=== PATIENT | female | born 1935 | race Caucasian/White ===

== ENCOUNTER 2017-05-31 16:25 | Emergency (ER) | payer MEDICARE, OTHER ==
[~2017-05-31] VITALS: Ht 167.6 cm; Wt 65.3 kg
[2017-05-31] MEDS ORDERED: PANT40TA3 PO (17:13)
[2017-05-31] MEDS ORDERED: DOCU-109 PO (17:13)
[2017-05-31] MEDS ORDERED: CYAN10005 PO (17:13)
[2017-05-31] MEDS ORDERED: GABA-586 PO (17:13)
[2017-05-31] MEDS ORDERED: DONE5TAB7 PO (17:13)
[2017-05-31] MEDS ORDERED: SERT50TA PO (17:13)
[2017-05-31] MEDS ORDERED: FOLI1TAB16 PO (17:13)
[2017-05-31] MEDS ORDERED: AMIT10TA PO (17:13)
[2017-05-31] MEDS ORDERED: ATOR20TA58 PO (17:13)
[2017-05-31] MEDS ORDERED: CALC-474 PO (17:13)
[2017-05-31] MEDS ORDERED: UBID100C26 PO (17:13)
[2017-05-31] MEDS ORDERED: GABA-587 PO (17:13)
[2017-05-31] MEDS ORDERED: ACEB200C PO (17:13)
[2017-05-31] MEDS ORDERED: EZET10TA18 PO (17:13)
[2017-05-31] MEDS ORDERED: METH-37 PO (17:13)
[2017-05-31] MEDS ORDERED: GABA-585 PO (17:13)
[2017-05-31] MEDS ORDERED: OMEG-141 PO (17:13)
[2017-05-31] MEDS ORDERED: MULT-47 PO (17:13)
[2017-05-31] MEDS ORDERED: fentaNYL PF VIAL 100 MCG/2 ML VIAL IV PRN (17:15)
[2017-05-31 17:20] LABS: BASO # 0.1 x10^3/uL (0.0-0.2); BASO % 1 % (0-3); EOS % 3 % (0-3); HEMATOCRIT 35.7 % (36.0-47.0); HEMOGLOBIN 12.1 g/dL (12.0-15.5); LYMPH # 1.7 x10^3/uL (1.0-4.8); LYMPH % 16 % (24-48); MEAN CORPUSCULAR HEMOGLOBIN 28 pg (25-35); MEAN CORPUSCULAR HGB CONC 34 g/dL (31-37); MEAN CORPUSCULAR VOLUME 84 fL (79-100); MONO % 8 % (0-9); NEUT % 72 % (31-73); PLATELET COUNT 415 x10^3/uL (140-400); RED BLOOD COUNT 4.26 x10^6/uL (3.50-5.40); RED CELL DISTRIBUTION WIDTH 13.9 % (11.5-14.5); WHITE BLOOD COUNT 10.5 x10^3/uL (4.0-11.0)
[2017-05-31 17:27] LABS: CALCIUM 8.9 mg/dL (8.5-10.1); CREATININE 0.9 mg/dL (0.6-1.0); GFR 60.4; POTASSIUM 3.8 mmol/L (3.5-5.1)
[2017-05-31 17:32] LABS: ALBUMIN 3.1 g/dL (3.4-5.0); ALBUMIN/GLOBULIN RATIO 0.8 (1.0-1.7); TOTAL BILIRUBIN 0.2 mg/dL (0.2-1.0); TOTAL PROTEIN 7.1 g/dL (6.4-8.2)
[2017-05-31 18:15] VITALS: BP 133/60
--- NOTE | 2017-05-31 18:49 | RAD ---
EXAM: Chest, single view. HISTORY: Palpitations. COMPARISON: None. FINDINGS: A frontal view of the chest is obtained. There is no infiltrate, effusion or pneumothorax. The heart is normal in size. There are implanted breast prostheses with peripheral calcification. There is a cardiac pacemaker with leads in expected position. IMPRESSION: No acute pulmonary finding. Electronically signed by: Judith Casillas MD (05/31/2017 6:45 PM) [facility]
--- NOTE | 2017-05-31 19:04 | RAD ---
EXAM: Head and cervical spine CT without contrast. HISTORY: Headache. TECHNIQUE: Computed tomographic images of the head and cervical spine were obtained without contrast. *One or more of the following individualized dose reduction techniques were utilized for this examination: 1. Automated exposure control. 2. Adjustment of the mA and/or kV according to patient size. 3. Use of iterative reconstruction technique. COMPARISON: None. FINDINGS: Head: There is no hemorrhage. There is no mass effect or midline shift. There is no hydrocephalus. There are subtle areas of hypodensity within the cerebral white matter, a nonspecific finding which is likely artifactual or due to chronic small vessel disease. The visualized portions of the orbits, paranasal sinuses and mastoid air cells are unremarkable. No calvarial lesion is seen. Cervical spine: There is cervical kyphosis. There is anterolisthesis of C3 on C4 and slight retrolisthesis of C4 on C5, C5 on C6 and C6 on C7. There is degenerative endplate remodeling with disc space narrowing, osteophytosis and Schmorl's node formation at C4-C7. There is calcified pannus surrounding the dens and there are erosions involving the dens, a nonspecific finding which can be seen with rheumatoid arthritis. No suspicious lytic or splenic osseous lesion is seen. No displaced fracture is seen. There is calcified plaque within the carotid bifurcations. The lung apices are unremarkable. At C2-C3, there is mild right and severe left facet arthropathy. There is no stenosis. At C3-C4, there is mild right and moderate left facet arthropathy. There is no stenosis. At C4-C5, there is a disc bulge and endplate remodeling. There is mild bilateral facet arthropathy. There is no stenosis. At C5-C6, there is a disc bulge and endplate osteophytosis. There is uncovertebral arthropathy. There is no stenosis At C6-C7, there is a disc bulge and endplate osteophytosis. There is uncovertebral arthropathy. There is no stenosis. IMPRESSION: 1. No acute intracranial finding. 2. 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 3. Cervical kyphosis and multilevel listhesis, degenerative in etiology Electronically signed by: Judith Casillas MD (05/31/2017 7:00 PM) [id number]
[2017-05-31] MEDS ORDERED: OXYC5CAP PO (19:30)
--- NOTE | 2017-05-31 19:30 | PHYS DOC ---
Past Medical History Past Medical History: A-Fib, GERD, High Cholesterol, Hypertension, Other Additional Past Medical Histor: alzheimers Past Surgical History: Hysterectomy, Pacemaker, Tonsillectomy, Other Additional Past Surgical Histo: bunion, implants Alcohol Use: None Drug Use: None Adult General Chief Complaint Chief Complaint: Neck Pain HPI HPI Patient is a 81 year old female who presents with neck pain. She reports 2 day history of bilateral neck pain/stiffness greatest on the right. She also has mild dull right-sided frontal headache, not sudden in onset and not the worst headache of her life. She states symptoms began after she showered for the first time after pacemaker placement (05/[address] Khan). She states she falls often, uncertain whether she might have had a fall since her pacemaker was placed. She doesn't remember any loss of consciousness or specific injury. She states she experienced palpitations briefly before presenting to the emergency department. She denies chest pain, shortness of breath. She denies fevers or chills, erythema/warmth/swelling, or purulent drainage from the incision overlying her pacemaker. Review of Systems Review of Systems Constitutional: Denies fever or chills Eyes: Denies change in visual acuity HENT: Denies nasal congestion or sore throat Respiratory: Denies cough or shortness of breath Cardiovascular: Denies chest pain or edema, reports palpitations GI: Denies abdominal pain, nausea, vomiting Musculoskeletal: Reports neck pain, Denies back pain or joint pain Integument: Denies rash or skin lesions Neurologic: Reports headache, denies focal weakness or sensory changes Current Medications Current Medications Current Medications Medications (Trade) Dose Ordered Sig/[facility] Start Time Stop Time Status Last Admin Dose Admin Fentanyl Citrate (Fentanyl 2ml Vial) 50 mcg PRN Q15MIN PRN 05/31/17 17:15 05/31/17 19:58 DC Oxycodone HCl (Roxicodone) 2.5 mg 1X ONCE 05/31/17 19:45 05/31/17 19:46 DC 05/31/17 19:50 2.5 MG Allergies Allergies Allergies Coded Allergies Type Severity Reaction Last Updated Verified No Known Medication Allergies Allergy Unknown 05/31/17 Yes codeine Adverse Reaction Intermediate Nausea and Vomiting 05/31/17 Yes Physical Exam Physical Exam Constitutional: Well developed, well nourished, no acute distress, non-toxic appearance. HENT: Normocephalic, atraumatic, bilateral external ears normal, oropharynx moist, nose normal. Eyes: PERRLA, EOMI, conjunctiva normal, no discharge. Neck: supple, no stridor. right sternocleidomastoid & trapezius tenderness greatest on the right, no evidence of hematoma, no carotid bruit bilaterally. Cardiovascular: RRR, no murmurs, no edema. Lungs & Thorax: LCTAB, no wheezing, no respiratory distress. left anterior chest wall pacemaker with intact incision, no erythema/warmth/swelling, no drainage. Abdomen: soft, nontender, nondistended. Skin: Warm, dry, no erythema, no rash. Back: No tenderness. Extremities: No tenderness, no edema. Neurologic: Alert and oriented X 3, CN2-12 grossly intact, symmetric strength/ sensation to UE & LE, no focal deficits noted. Psychologic: anxious Current Patient Data Vital Signs Vital Signs Date Time Temp Pulse Resp B/P (MAP) Pulse Ox O2 Delivery O2 Flow Rate FiO2 05/31/17 19:50 20 Room Air 05/31/17 18:15 75 133/60 (84) 96 05/31/17 16:30 98.4 98.4 Lab Values Laboratory Tests Test 05/31/17 16:35 White Blood Count 10.5 x10^3/uL (4.0-11.0) Red Blood Count 4.26 x10^6/uL (3.50-5.40) Hemoglobin 12.1 g/dL (12.0-15.5) Hematocrit 35.7 % (36.0-47.0) L Mean Corpuscular Volume 84 fL (79-100) Mean Corpuscular Hemoglobin 28 pg (25-35) Mean Corpuscular Hemoglobin Concent 34 g/dL (31-37) Red Cell Distribution Width 13.9 % (11.5-14.5) Platelet Count 415 x10^3/uL (140-400) H Neutrophils (%) (Auto) 72 % (31-73) Lymphocytes (%) (Auto) 16 % (24-48) L Monocytes (%) (Auto) 8 % (0-9) Eosinophils (%) (Auto) 3 % (0-3) Basophils (%) (Auto) 1 % (0-3) Neutrophils # (Auto) 7.6 x10^3uL (1.8-7.7) Lymphocytes # (Auto) 1.7 x10^3/uL (1.0-4.8) Monocytes # (Auto) 0.9 x10^3/uL (0.0-1.1) Eosinophils # (Auto) 0.3 x10^3/uL (0.0-0.7) Basophils # (Auto) 0.1 x10^3/uL (0.0-0.2) Sodium Level 141 mmol/L (136-145) Potassium Level 3.8 mmol/L (3.5-5.1) Chloride Level 104 mmol/L (98-107) Carbon Dioxide Level 30 mmol/L (21-32) Anion Gap 7 (6-14) Blood Urea Nitrogen 14 mg/dL (7-20) Creatinine 0.9 mg/dL (0.6-1.0) Estimated GFR (Cockcroft-Gault) 60.4 BUN/Creatinine Ratio 16 (6-20) Glucose Level 142 mg/dL (70-99) H Calcium Level 8.9 mg/dL (8.5-10.1) Total Bilirubin 0.2 mg/dL (0.2-1.0) Aspartate Amino Transferase (AST) 15 U/L (15-37) Alanine Aminotransferase (ALT) 22 U/L (14-59) Alkaline Phosphatase 90 U/L (46-116) Troponin I Quantitative < 0.017 ng/mL (0.000-0.055) Total Protein 7.1 g/dL (6.4-8.2) Albumin 3.1 g/dL (3.4-5.0) L Albumin/Globulin Ratio 0.8 (1.0-1.7) L Laboratory Tests 05/31/17 16:35 Laboratory Tests 05/31/17 16:35 EKG EKG interpreted by me: NSR rate 84, no acute ST/T wave changes, Q waves in lead 3, normal intervals, no ectopy.[] Radiology/Procedures Radiology/Procedures PROCEDURE: CT HEAD AND CERVICAL SPINE WO EXAM: Head and cervical spine CT without contrast. HISTORY: Headache. TECHNIQUE: Computed tomographic images of the head and cervical spine were obtained without contrast. *One or more of the following individualized dose reduction techniques were utilized for this examination: 1. Automated exposure control. 2. Adjustment of the mA and/or kV according to patient size. 3. Use of iterative reconstruction technique. COMPARISON: None. FINDINGS: Head: There is no hemorrhage. There is no mass effect or midline shift. There is no hydrocephalus. There are subtle areas of hypodensity within the cerebral white matter, a nonspecific finding which is likely artifactual or due to chronic small vessel disease. The visualized portions of the orbits, paranasal sinuses and mastoid air cells are unremarkable. No calvarial lesion is seen. Cervical spine: There is cervical kyphosis. There is anterolisthesis of C3 on C4 and slight retrolisthesis of C4 on C5, C5 on C6 and C6 on C7. There is degenerative endplate remodeling with disc space narrowing, osteophytosis and Schmorl's node formation at C4-C7. There is calcified pannus surrounding the dens and there are erosions involving the dens, a nonspecific finding which can be seen with rheumatoid arthritis. No suspicious lytic or splenic osseous lesion is seen. No displaced fracture is seen. There is calcified plaque within the carotid bifurcations. The lung apices are unremarkable. At C2-C3, there is mild right and severe left facet arthropathy. There is no stenosis. At C3-C4, there is mild right and moderate left facet arthropathy. There is no stenosis. At C4-C5, there is a disc bulge and endplate remodeling. There is mild bilateral facet arthropathy. There is no stenosis. At C5-C6, there is a disc bulge and endplate osteophytosis. There is uncovertebral arthropathy. There is no stenosis At C6-C7, there is a disc bulge and endplate osteophytosis. There is uncovertebral arthropathy. There is no stenosis. IMPRESSION: 1. No acute intracranial finding. 2. 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 3. Cervical kyphosis and multilevel listhesis, degenerative in etiology Electronically signed by: Judith Morejon MD (05/31/2017 7:00 PM) [facility] DICTATED and SIGNED BY: JUDITH MOREJON MD DATE: 05/31/17 1647 PROCEDURE: CHEST AP ONLY EXAM: Chest, single view. HISTORY: Palpitations. COMPARISON: None. FINDINGS: A frontal view of the chest is obtained. There is no infiltrate, effusion or pneumothorax. The heart is normal in size. There are implanted breast prostheses with peripheral calcification. There is a cardiac pacemaker with leads in expected position. IMPRESSION: No acute pulmonary finding. Electronically signed by: Judith Morejon MD (05/31/2017 6:45 PM) [facility] DICTATED and SIGNED BY: JUDITH MOREJON MD DATE: 05/31/17 1845[] Course & Med Decision Making Course & Med Decision Making Pertinent Labs and Imaging studies reviewed. (See chart for details) The patient presents with neck pain and recent pacemaker insertion. Provided pain medication. I discussed briefly with Dr. Raygoza who is on-call for Dr. Khan. She agrees with evaluation here, okay to just order CT of head and C- spine which she anticipates will demonstrate hematoma if present. Evaluation was somewhat delayed by IT problems with the PACs system; I was called by radiologist Dr. Villeda with preliminary read showing right frontal subdural fluid collection size of 4 mm. He felt this was likely a chronic finding, however patient denies any history or knowledge of this abnormality on past exams. Location corresponds to the region where she is experiencing headache. I consulted with Dr. Franks of neurosurgery who reviewed the images. He thought likely to be hygroma, recommends follow-up CT in one week as an outpatient, no need to admit to the hospital based on this finding. The final read by a different radiologist actually made no mention of this finding. Otherwise labs, EKG, chest x-ray showed no significant abnormality. Pacemaker was interrogated, no evidence of arrhythmia, had been placed to recently to evaluate battery life. I reviewed results with Dr. Raygoza who recommended okay to discharge home with pain medication, call for appointment with Dr. Khan this week. Discussed at length with the patient and her daughter. Recommend okay to pertussis. And physical therapy as tolerated, give prescription for oxycodone to take as needed for severe pain. Come back for severe headache, severe chest pain, severe shortness of breath, skin infection overlying pacemaker, any otherwise worsening condition. I did communicate on discharge papers need for repeat head CT so that this information can be communicated to half-way physician. Patient discharged home in stable condition. [] Dragon Disclaimer Dragon Disclaimer This electronic medical record was generated, in whole or in part, using a voice recognition dictation system. Departure Departure Impression: Primary Impression: Strain of sternocleidomastoid muscle Disposition: HOME, SELF-CARE Condition: STABLE Referrals: CROW KHAN MD (PCP) Patient Instructions: Soft Tissue Injury of the Neck, [id number] Additional Instructions: You were seen in the emergency department today for neck pain. The tests performed today did not show a serious cause of symptoms. There was an abnormality on your head CT scan that is unlikely to be the cause of your pain. The neurosurgeon recommended a follow-up CT scan in one week. This can be ordered by your primary care doctor or may discussed with Dr. Khan. The pain in your neck is likely muscle strain or spasm. Please continue to use your muscle relaxer. You can take oxycodone for severe breakthrough pain. Use the minimum amount needed to control pain. It is okay to continue physical therapy and occupational therapy as long as you follow restrictions from your pacemaker placement. Follow-up with primary care physician or Dr. Khan in 2 days. You may call the cardiology clinic in the morning to make an appointment. Return to the emergency department for severe confusion, numbness or weakness in arms or legs, worst headache of your life, sudden onset of severe headache, severe chest pain or shortness of breath, persistent palpitations, any otherwise worsening condition. Scripts Oxycodone Hcl (OXYCODONE HCL) 5 Mg Capsule 0.5 CAP PO TID Y for SEVERE PAIN, #6 CAP Prov: YOLANDA LIVE MD 05/31/17 YOLANDA LIVE MD May 31, 2017 19:30
[2017-05-31] MEDS ORDERED: oxyCODONE IR 5 MG TABLET PO ONE (19:45)
--- NOTE | 2017-06-01 06:28 | EKG ---
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
== END 2017-05-31 19:58 | disposition home or self-care (01) ==
LOC: ER 16:25
DX: S16.1XXA Strain of muscle, fascia and tendon at neck level, initial encounter (principal); R00.2 Palpitations; I48.91 Unspecified atrial fibrillation; K21.9 Gastro-esophageal reflux disease without esophagitis; E78.00 Pure hypercholesterolemia, unspecified; I10 Essential (primary) hypertension; G30.9 Alzheimer's disease, unspecified; F02.80 Dementia in other diseases classified elsewhere, unspecified severity, without behavioral disturbance, psychotic disturbance, mood disturbance, and anxiety; Z95.0 Presence of cardiac pacemaker; Z90.710 Acquired absence of both cervix and uterus; Z88.5 Allergy status to narcotic agent; X58.XXXA Exposure to other specified factors, initial encounter; Y93.89 Activity, other specified; Y92.89 Other specified places as the place of occurrence of the external cause; Y99.8 Other external cause status
CPT/HCPCS: 36415; 70450; 71010; 72125; 80053; 84484; 85025; 93005; 99285-25

== ENCOUNTER 2017-08-12 12:55 | Emergency (ER) | payer MEDICARE, OTHER ==
[~2017-08-12] VITALS: Ht 170.2 cm; Wt 65.3 kg
[~2017-08-12 12:55] MED LIST: ACEB200C PO; AMIT10TA PO; ATOR20TA58 PO; CALC-474 PO; CYAN10005 PO; DOCU-109 PO; DONE5TAB7 PO; EZET10TA18 PO; FOLI1TAB16 PO; GABA-585 PO; GABA-586 PO; GABA-587 PO; METH-37 PO; MULT-47 PO; OMEG-141 PO; OXYC5CAP PO; PANT40TA3 PO; SERT50TA PO; UBID100C26 PO
--- NOTE | 2017-08-12 14:14 | RAD ---
CT head without contrast History: Altered mental status. Comparison: 12/29/2016. Procedure: Axial images are obtained of the head from the skull base through the vertex without IV contrast. Findings: Mild bilateral periventricular white matter hypodensities likely chronic small vessel ischemic disease. The ventricles and sulci are normal for the patient's age. No mass-effect, intracranial mass, midline shift, hemorrhage or obvious acute infarction is identified. Basilar cisterns are patent. Bone windows demonstrate no significant calvarial abnormality. The visualized paranasal sinuses appear clear. Impression: 1. No acute intracranial process. PQRS Compliance Statement: One or more of the following individualized dose reduction techniques were utilized for this examination: 1. Automated exposure control 2. Adjustment of the mA and/or kV according to patient size 3. Use of iterative reconstruction technique
--- NOTE | 2017-08-12 14:59 | PHYS DOC ---
Past Medical History Past Medical History: A-Fib, GERD, High Cholesterol, Hypertension, Other Additional Past Medical Histor: alzheimers Past Surgical History: Hysterectomy, Pacemaker, Tonsillectomy, Other Additional Past Surgical Histo: bunion, implants Alcohol Use: Rarely Drug Use: None Adult General Chief Complaint Chief Complaint: HEADACHE HPI HPI Patient is a 81 year old [f__sex] who presents with [] Review of Systems Review of Systems Constitutional: Denies fever or chills [] Eyes: Denies change in visual acuity, redness, or eye pain [] HENT: Denies nasal congestion or sore throat [] Respiratory: Denies cough or shortness of breath [] Cardiovascular: No additional information not addressed in HPI [] GI: Denies abdominal pain, nausea, vomiting, bloody stools or diarrhea [] : Denies dysuria or hematuria [] Musculoskeletal: Denies back pain or joint pain [] Integument: Denies rash or skin lesions [] Neurologic: Denies headache, focal weakness or sensory changes [] Endocrine: Denies polyuria or polydipsia [] Allergies Allergies Allergies Coded Allergies Type Severity Reaction Last Updated Verified codeine Adverse Reaction Intermediate Nausea and Vomiting 05/31/17 Yes Physical Exam Physical Exam Constitutional: Well developed, well nourished, no acute distress, non-toxic appearance. [] HENT: Normocephalic, atraumatic, bilateral external ears normal, oropharynx moist, no oral exudates, nose normal. [] Eyes: PERRLA, EOMI, conjunctiva normal, no discharge. [] Neck: Normal range of motion, no tenderness, supple, no stridor. [] Cardiovascular:Heart rate regular rhythm, no murmur [] Lungs & Thorax: Bilateral breath sounds clear to auscultation [] Abdomen: Bowel sounds normal, soft, no tenderness, no masses, no pulsatile masses. [] Skin: Warm, dry, no erythema, no rash. [] Back: No tenderness, no CVA tenderness. [] Extremities: No tenderness, no cyanosis, no clubbing, ROM intact, no edema. [] Neurologic: Alert and oriented X 3, normal motor function, normal sensory function, no focal deficits noted. [] Psychologic: Affect normal, judgement normal, mood normal. [] Current Patient Data Vital Signs Vital Signs Date Time Temp Pulse Resp B/P (MAP) Pulse Ox O2 Delivery O2 Flow Rate FiO2 08/12/17 14:24 72 16 94 08/12/17 13:01 97.5 148/66 (93) Room Air 97.5 EKG EKG [] Radiology/Procedures Radiology/Procedures [] Course & Med Decision Making Course & Med Decision Making Pertinent Labs and Imaging studies reviewed. (See chart for details) [] Dragon Disclaimer Dragon Disclaimer This electronic medical record was generated, in whole or in part, using a voice recognition dictation system. Departure Departure Disposition: 01 HOME, SELF-CARE Condition: STABLE Referrals: LON CAAL MD (PCP) Patient Instructions: Splenic Injury Additional Instructions: Your history and findings suggest that you are having an attack of your chronic neck pain which appears to have been precipitated by some muscle strain during sleep days ago. Continue your outpatient pain regimen and use your antispasm medication as needed. Consider warm compresses warm soaks and gentle stretches of your neck. The CAT scan of your head showed no acute abnormal findings and no further workup or treatment is indicated at this time. Follow-up with your doctor tomorrow and return immediately for new severe or worsening symptoms. CHANTAL PATRICK MD Aug 12, 2017 14:59
[2017-08-12 15:12] VITALS: BP 144/78
== END 2017-08-12 15:13 | disposition home or self-care (01) ==
LOC: ER 12:55
DX: R51 Headache (principal); I48.91 Unspecified atrial fibrillation; K21.9 Gastro-esophageal reflux disease without esophagitis; E78.00 Pure hypercholesterolemia, unspecified; I10 Essential (primary) hypertension; G30.9 Alzheimer's disease, unspecified; Z95.0 Presence of cardiac pacemaker; Z88.5 Allergy status to narcotic agent
CPT/HCPCS: 70450; 99284-25

== ENCOUNTER → 2017-10-09 | Day surgery (SDC) | payer MEDICARE, OTHER ==
[~2017-10-09] MED LIST changes: -ACEB200C PO; -AMIT10TA PO; -ATOR20TA58 PO; -CALC-474 PO; -CYAN10005 PO; -DOCU-109 PO; -DONE5TAB7 PO; -EZET10TA18 PO; -FOLI1TAB16 PO; -GABA-585 PO; -GABA-586 PO; -GABA-587 PO; +LIDOCAINE 1% PF 2 ML VIAL. ID; +LIDOCAINE 2% PF Vial for OR 5 ML VIAL.; -METH-37 PO; -MULT-47 PO; -OMEG-141 PO; -OXYC5CAP PO; -PANT40TA3 PO; +PROCHLORPERAZINE 10 MG/2 ML VIAL. IV; +PROPOFOL 20 ML IV; -SERT50TA PO; -UBID100C26 PO; +fentaNYL PF VIAL 100 MCG/2 ML VIAL IV
[2017-10-09] MEDS: IV RINGERS,LACTATED 1000ML 1,000 ML IV (13:17)
== END | disposition home or self-care (01) ==
LOC: ENDOS 12:19
DX: K22.2 Esophageal obstruction (principal); K29.50 Unspecified chronic gastritis without bleeding; I10 Essential (primary) hypertension; E78.5 Hyperlipidemia, unspecified; Z95.0 Presence of cardiac pacemaker; Z86.718 Personal history of other venous thrombosis and embolism; Z86.73 Personal history of transient ischemic attack (TIA), and cerebral infarction without residual deficits; K21.9 Gastro-esophageal reflux disease without esophagitis; Z86.19 Personal history of other infectious and parasitic diseases; Z85.828 Personal history of other malignant neoplasm of skin; M19.90 Unspecified osteoarthritis, unspecified site; Z79.01 Long term (current) use of anticoagulants; Z79.899 Other long term (current) drug therapy; Z90.710 Acquired absence of both cervix and uterus; Z88.6 Allergy status to analgesic agent; Z88.8 Allergy status to other drugs, medicaments and biological substances; Z72.89 Other problems related to lifestyle
CPT/HCPCS: 43235; J2704

== ENCOUNTER 2017-11-14 10:24 | Emergency (ER) | payer MEDICARE, OTHER ==
[2017-11-14] MEDS: ONDANSETRON PF 4 MG/2 ML VIAL. IV ×2 (11:00)
[2017-11-14 11:02] LABS: ADD MAN DIFF? NO
[2017-11-14 11:07] LABS: BASO % 1 % (0-3); EOS # 0.2 x10^3/uL (0.0-0.7); EOS % 3 % (0-3); HEMATOCRIT 39.8 % (36.0-47.0); HEMOGLOBIN 13.1 g/dL (12.0-15.5); LYMPH # 1.3 x10^3/uL (1.0-4.8); LYMPH % 24 % (24-48); MEAN CORPUSCULAR HEMOGLOBIN 28 pg (25-35); MEAN CORPUSCULAR HGB CONC 33 g/dL (31-37); MEAN CORPUSCULAR VOLUME 86 fL (79-100); MONO # 0.4 x10^3/uL (0.0-1.1); MONO % 7 % (0-9); NEUT # 3.7 x10^3uL (1.8-7.7); NEUT % 65 % (31-73); PLATELET COUNT 316 x10^3/uL (140-400); RED BLOOD COUNT 4.63 x10^6/uL (3.50-5.40); RED CELL DISTRIBUTION WIDTH 15.1 % (11.5-14.5); WHITE BLOOD COUNT 5.6 x10^3/uL (4.0-11.0)
[2017-11-14 11:24] LABS: ANION GAP 7 (6-14); BLOOD UREA NITROGEN 17 mg/dL (7-20); BUN/CREATININE RATIO 21 (6-20); CALCIUM 8.7 mg/dL (8.5-10.1); CARBON DIOXIDE 28 mmol/L (21-32); CHLORIDE 106 mmol/L (98-107); CREATININE 0.8 mg/dL (0.6-1.0); GFR 69.2; GLUCOSE 95 mg/dL (70-99); POTASSIUM 5.8 mmol/L (3.5-5.1); SODIUM 141 mmol/L (136-145)
[2017-11-14 11:30] LABS: ALBUMIN 3.4 g/dL (3.4-5.0); ALBUMIN/GLOBULIN RATIO 0.9 (1.0-1.7); ALK PHOS 74 U/L (46-116); ALT (SGPT) 31 U/L (14-59); AST (SGOT) 43 U/L (15-37); LIPASE 204 U/L (73-393); TOTAL BILIRUBIN 0.4 mg/dL (0.2-1.0); TOTAL PROTEIN 7.1 g/dL (6.4-8.2)
== END 2017-11-14 13:20 | disposition home or self-care (01) ==
LOC: ER 10:24
DX: T82.118A Breakdown (mechanical) of other cardiac electronic device, initial encounter (principal); F02.80 Dementia in other diseases classified elsewhere, unspecified severity, without behavioral disturbance, psychotic disturbance, mood disturbance, and anxiety; G30.9 Alzheimer's disease, unspecified; E78.00 Pure hypercholesterolemia, unspecified; I10 Essential (primary) hypertension; J45.909 Unspecified asthma, uncomplicated; I48.91 Unspecified atrial fibrillation; K21.9 Gastro-esophageal reflux disease without esophagitis; Z90.710 Acquired absence of both cervix and uterus; Z88.5 Allergy status to narcotic agent; Y82.8 Other medical devices associated with adverse incidents; Y92.89 Other specified places as the place of occurrence of the external cause
CPT/HCPCS: 36415; 71046; 80053; 83690; 85025; 93005; 99285-25

== ENCOUNTER → 2018-01-29 | Outpatient (CLI) | payer MEDICARE, OTHER | END | disposition home or self-care (01) | LOC: MRI 14:00 | DX: M19.011 Primary osteoarthritis, right shoulder (principal); M75.121 Complete rotator cuff tear or rupture of right shoulder, not specified as traumatic; M25.411 Effusion, right shoulder; G89.29 Other chronic pain | CPT/HCPCS: 73221 ==

== ENCOUNTER → 2018-02-04 | Day surgery (SDC) | payer MEDICARE, OTHER ==
[~2018-02-04] MED LIST changes: +ONDANSETRON PF 4 MG/2 ML VIAL. IV; -PROPOFOL 20 ML IV; +PROPOFOL 40 ML IV
[2018-02-04] MEDS: IV RINGERS,LACTATED 1000ML 1,000 ML IV (12:15)
== END | disposition home or self-care (01) ==
LOC: ENDOS 11:43
DX: K64.0 First degree hemorrhoids (principal); K57.30 Diverticulosis of large intestine without perforation or abscess without bleeding; I10 Essential (primary) hypertension; J45.909 Unspecified asthma, uncomplicated; F41.9 Anxiety disorder, unspecified; F32.9 Major depressive disorder, single episode, unspecified; E78.00 Pure hypercholesterolemia, unspecified; K21.9 Gastro-esophageal reflux disease without esophagitis; M19.90 Unspecified osteoarthritis, unspecified site; Z86.73 Personal history of transient ischemic attack (TIA), and cerebral infarction without residual deficits; Z86.19 Personal history of other infectious and parasitic diseases; Z82.49 Family history of ischemic heart disease and other diseases of the circulatory system; Z86.010 Personal history of colon polyps; Z88.5 Allergy status to narcotic agent; Z88.8 Allergy status to other drugs, medicaments and biological substances; Z82.3 Family history of stroke; Z80.0 Family history of malignant neoplasm of digestive organs; Z72.89 Other problems related to lifestyle; Z79.899 Other long term (current) drug therapy; Z95.0 Presence of cardiac pacemaker; Z90.710 Acquired absence of both cervix and uterus; Z98.890 Other specified postprocedural states
CPT/HCPCS: 45380; J2704

== ENCOUNTER → 2018-04-08 | Outpatient (CLI) | payer MEDICARE, OTHER ==
[~2018-04-08] MED LIST changes: +BARIUM SULFATE 40% (APPLE) 148 GM PWD. PO; -LIDOCAINE 1% PF 2 ML VIAL. ID; -LIDOCAINE 2% PF Vial for OR 5 ML VIAL.; -ONDANSETRON PF 4 MG/2 ML VIAL. IV; -PROCHLORPERAZINE 10 MG/2 ML VIAL. IV; -PROPOFOL 40 ML IV; -fentaNYL PF VIAL 100 MCG/2 ML VIAL IV
[2018-04-08] MEDS: BARIUM SULFATE 40% (APPLE) 148 GM PWD. PO (13:00)
== END | disposition home or self-care (01) ==
LOC: RAD 13:51
DX: R13.10 Dysphagia, unspecified (principal); I10 Essential (primary) hypertension; E78.5 Hyperlipidemia, unspecified; E78.00 Pure hypercholesterolemia, unspecified
CPT/HCPCS: 74230; 92526-GN; 92611-GN; G8996-CI-GN; G8997-CI-GN; G8998-CI-GN

== ENCOUNTER → 2019-02-03 | Outpatient (CLI) | payer MEDICARE, OTHER ==
[2018-02-04 13:38] VITALS: BP 115/65
[~2019-02-03] MED LIST changes: +ACEB200C PO; +AMIT10TA PO; +APIX5TAB PO; +ATOR20TA58 PO; -BARIUM SULFATE 40% (APPLE) 148 GM PWD. PO; +CALC-474 PO; +CLON2TAB9 PO; +CYAN10005 PO; +DOCU-109 PO; +DONE5TAB7 PO; +EZET10TA18 PO; +FOLI1TAB16 PO; +GABA-585 PO; +GABA-689 PO; +GABA300C18 PO; +METH-37 PO; +MULT-47 PO; +OMEG-141 PO; +OXYC5CAP PO; +PANT40TA3 PO; +SERT50TA PO; +UBID100C26 PO
--- NOTE | 2019-02-03 16:00 | KCIC ---
Left lower extremity venous duplex study 02/03/2019 Clinical History: Left Lower extremity edema Technique: Using a combination of real time ultrasound imaging and color-flow and pulse Doppler imaging techniques, including spectral analysis, graded compression and augmentation, duplex evaluation of the deep venous system of the left lower extremity was performed. Multiple images were obtained. Findings: There is no sonographic evidence of deep venous thrombosis involving the visualized deep venous structures of the left lower extremity Impression: No evidence of deep venous thrombosis involving the left lower extremity Electronically signed by: Kam Rodriguez MD (02/03/2019 3:57 PM) [id number]
== END | disposition home or self-care (01) ==
LOC: KCIC US 14:39
PROVIDERS: ATTEND Family Medicine
DX: R60.0 Localized edema (principal)
CPT/HCPCS: 93971